=== PATIENT | male | born 1995 | race Hispanic/Latino ===

== ENCOUNTER 2022-07-03 18:00 | Emergency (ER) | payer OTHER ==
[~2022-07-03] VITALS: Ht 165.1 cm; Wt 104.9 kg
[2022-07-03 18:01] VITALS: BP 143/73
[2022-07-03] MEDS ORDERED: FLUORESCEIN OPHTH 1MG STRIP OD ONE (21:45)
[2022-07-03] MEDS ORDERED: TETRACAINE 0.5% OPHTH SOLN 4ML OD ONE (21:45)
[2022-07-03] MEDS ORDERED: ERYT5OIN25 OP (22:30)
[2022-07-03] MEDS ORDERED: BOOSTRIX VACCINE (TETANUS/DIPHTH/ACEL. PERTUSSIS) 0.5ML SYR IM ONE (22:35)
[2022-07-03] MEDS ORDERED: ERYTHROMYCIN OPHTH OINT OD ONE (22:35)
== END 2022-07-03 23:01 | disposition home or self-care (01) ==
LOC: M ED 18:00
DX: T15.01XA Foreign body in cornea, right eye, initial encounter (principal); Y99.0 Civilian activity done for income or pay; Y93.89 Activity, other specified